=== PATIENT | female | born 1975 | race Caucasian/White ===

== ENCOUNTER 2017-04-15 08:48 | Emergency (ER) | payer BC ==
[2017-04-15 09:19] VITALS: BP 123/87
--- NOTE | 2017-04-15 10:15 | UC ---
Ear Complaint HPI - HPI Summary HPI Summary: 41 y/o female with R ear pain, worsening since friday, irritting on , now with pain in front of ear, no drainage, no fever, chills, works as nurse so multiple exposures, no h/o sinus infections, mild drainage from nose this AM , PMH- asthma, has resuce inhaler at home, no SOB, chest pain. no other symptoms. - History of Current Complaint Chief Complaint: UCEar Stated Complaint: RT EAR ACHE Time Seen by Provider: 04/15/17 10:02 Hx Obtained From: Patient Hx Last Menstrual Period: IUD Onset/Duration: Gradual Onset Severity Initially: Mild Severity Currently: Moderate - Allergies/Home Medications Allergies/Adverse Reactions: Allergies Allergy/AdvReac Type Severity Reaction Status Date / Time No Known Allergies Allergy Verified 04/15/17 09:19 PMH/Surg Hx/FS Hx/Imm Hx Previously Healthy: Yes - asthma - Surgical History Surgical History: Yes Surgery Procedure, Year, and Place: METAL PLATE IN R HAND - Social History Alcohol Use: Occasionally Substance Use Type: None Smoking Status (MU): Former Smoker Type: Cigarettes - Immunization History Most Recent Influenza Vaccination: CURRENT FOR Review of Systems ENT: Ear Ache Is Patient Immunocompromised?: No All Other Systems Reviewed And Are Negative: Yes Physical Exam Triage Information Reviewed: Yes Appearance: Well-Appearing, No Pain Distress, Well-Nourished Vital Signs: Initial Vital Signs Temp 97.6 F 04/15/17 09:14 Pulse 64 04/15/17 09:14 Resp 18 04/15/17 09:14 BP 123/87 04/15/17 09:14 Pulse Ox 100 04/15/17 09:14 Vital Signs Reviewed: Yes Eyes: Positive: Conjunctiva Clear ENT: Positive: TM bulging - R>L, + fluid levels., TM dull, TM red Neck: Positive: Supple, Nontender, No Lymphadenopathy. Negative: Nuchal Rigidity Neurological Exam: Normal Psychological Exam: Normal Skin Exam: Normal Ear Complaint Course/Dx - Course Course Of Treatment: AOM, ABX, follow up with PCP if not imrpovement within 48 hours or for worsening symptoms. - Differential Dx/Diagnosis Differential Diagnosis/HQI/PQRI: Cerumen Impaction, Foreign Body, Otitis Externa , Otitis Media Provider Diagnoses: AOM, B/L Discharge - Discharge Plan Condition: Good Disposition: HOME Prescriptions: Amoxicillin PO (*) [Amoxicillin 500 MG CAP*] 500 mg PO Q12H #20 cap Patient Education Materials: Otitis Media (ED) Referrals: Non Staff,Doctor [Primary Care Provider] - Additional Instructions: Follow up with PCP if not imrpovement within 48 hours or for worsening symptoms. - Amoxicilline 1000mg every 8 hours x 10 days - increase fluid intact - increase rest
== END 2017-04-15 10:25 | disposition home or self-care (01) ==
LOC: UCCORT 08:48
DX: H66.93 Otitis media, unspecified, bilateral (principal); J45.909 Unspecified asthma, uncomplicated; Z87.891 Personal history of nicotine dependence
CPT/HCPCS: 99202; G0463

== ENCOUNTER → 2018-05-18 14:33 | Emergency (ER) | payer SELFPAY ==
--- NOTE | 2018-05-18 21:16 | UC ---
Course/Dx - Diagnoses Provider Diagnoses: Pre-employment examination Discharge - Sign-Out/Discharge Documenting (check all that apply): Post-Discharge Follow Up All imaging exams completed and their final reports reviewed: No Studies - Discharge Plan Condition: Stable Disposition: HOME Referrals: No Primary Care Phys,NOPCP [Primary Care Provider] - - Billing Disposition and Condition Condition: STABLE Disposition: Home
== END | disposition home or self-care (01) ==
LOC: OHCORT 14:33
DX: Z02.1 Encounter for pre-employment examination (principal)